=== PATIENT | male | born 1950 | race Caucasian/White ===

== ENCOUNTER → 2024-01-02 10:16 | Outpatient (REF) | payer MEDICARE, BC, SELFPAY | LOC: MRI 10:16 | PROVIDERS: ATTENDING PHYSICIAN Family Medicine | DX: R55 Syncope and collapse (principal); R22.1 Localized swelling, mass and lump, neck | CPT/HCPCS: 70544; 70553; 76536; A9575 ==

== ENCOUNTER → 2024-05-08 14:55 | Outpatient (REF) | payer MEDICARE, BC, SELFPAY | LOC: HWRCS 14:55 | PROVIDERS: ATTENDING PHYSICIAN Internal Medicine Interventional Cardiology; FAMILY PHYSICIAN Family Medicine | DX: R42 Dizziness and giddiness (principal); I10 Essential (primary) hypertension | CPT/HCPCS: 93306 ==